=== PATIENT | male | born 1975 | race American Indian/Alaskan Native ===

== ENCOUNTER 2017-09-22 23:35 | Emergency (ER) | payer OTHER ==
--- NOTE | 2017-09-23 00:25 | XRay Report ---
FINAL REPORT EXAM: XR CHEST ROUTINE 2V HISTORY: Shortness of breath COMPARISON: None available. FINDINGS:: Frontal and lateral views of the chest obtained. Cardiac silhouette is within normal limits. No focal consolidation or effusion. No pneumothorax. Visualized bony thorax is grossly intact. IMPRESSION:: No acute findings.
[2017-09-23 00:33] LABS: Hematocrit 39.7 % (35.5-45.6); Hemoglobin 13.1 gm/dl (11.8-15.2); Mean Corpuscular HGB Conc 33 % (32-34); Mean Corpuscular Hemoglobin 25 pg (28-32); Mean Corpuscular Volume 75 fl (84-94); Platelet Count 231 K/mm3 (140-440); Red Blood Count 5.29 M/mm3 (3.65-5.03); Red Cell Distribution Width 13.9 % (13.2-15.2); White Blood Count 6.9 K/mm3 (4.5-11.0)
[2017-09-23 00:35] LABS: Anion Gap 15 mmol/L; BUN/Creatinine Ratio 10; Blood Urea Nitrogen 11 mg/dL (9-20); Calcium 9.2 mg/dL (8.4-10.2); Carbon Dioxide 28 mmol/L (22-30); Chloride 102.6 mmol/L (98-107); Glucose 110 mg/dL (75-100); Potassium 3.9 mmol/L (3.6-5.0); Sodium 142 mmol/L (137-145)
[2017-09-23 02:04] LABS: Basophils % (Manual) 0 % (0.0-1.8); Blastocytes % (Manual) 0 %
[2017-09-23 02:05] LABS: Diff Status Complete; Platelet Estimate Consistent w Auto
[2017-09-23 03:35] LABS: Bilirubin,Urine NEG (Negative); Blood,Urine NEG (Negative); Ketones,Urine NEG (Negative); Leukocyte Esterase,Urine NEG (Negative); Nitrite,Urine NEG (Negative); Protein,Urine <15 mg/dL mg/dL (Negative); Urobilinogen,Urine < 2.0 mg/dL (<2.0)
[2017-09-23 03:49] LABS: WBC,Urine < 1.0 /HPF (0.0-6.0)
[2017-09-23] MEDS ORDERED: NACL 0.9% 1000 ML 1,000 ML IV ONE (07:13)
[2017-09-23] MEDS ORDERED: PEPCID IV ONE (07:13)
[2017-09-23] MEDS ORDERED: ALUM-MAG HYDROX-SIMETH 200-200-20MG/5ML PO ONE (07:14)
[2017-09-23] MEDS ORDERED: CARAFATE PO ONE (07:14)
--- NOTE | 2017-09-23 07:15 | Emergency Department Report ---
ED General Adult HPI - General Chief complaint: Chest Pain Stated complaint: CHEST PAIN,SHORT OF BREATH Time Seen by Provider: 09/23/17 06:58 Source: patient, RN notes reviewed Mode of arrival: Ambulatory Limitations: No Limitations - History of Present Illness Initial comments: This is a 42-year-old male who was previously unknown to this provider. Patient presents to the ER with a complaint of shortness of breath. The shortness of breath started yesterday. It is constant. It worsens with physical exertion. It decreases with rest. Patient also endorses central chest tightness. The chest tightness is associated with back tightness. There is no vomiting, diaphoresis. There is no leg pain. There is no leg swelling. Patient denies hematemesis. Patient does admits to chronic rectal bleeding for months which is not new or different. 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 He reports multiple trips and state and out of state. Patient denies cocaine ingestion. No recent aspirin ingestion. -: Sudden Location: chest Radiation: non-radiation Severity scale (0 -10): 7 Quality: aching Consistency: intermittent Improves with: rest Worsens with: movement Associated Symptoms: chest pain, shortness of breath. denies: nausea/vomiting - Related Data Previous Rx's Medication Instructions Recorded Last Taken Type Acetaminophen/Codeine [Tylenol #3] 1 tab PO Q6H PRN #16 tab 10/06/15 Unknown Rx Cyclobenzaprine [Flexeril] 10 mg PO Q8H PRN #21 tablet 10/06/15 Unknown Rx Acetaminophen [Tylenol Arthritis] 650 mg PO Q6HR PRN #30 tablet.er 09/23/17 Unknown Rx Famotidine [Pepcid] 20 mg PO QDAY #30 tablet 09/23/17 Unknown Rx Allergies Allergy/AdvReac Type Severity Reaction Status Date / Time No Known Allergies Allergy Unverified 10/06/15 04:17 ED Review of Systems ROS: Stated complaint: CHEST PAIN,SHORT OF BREATH Other details as noted in HPI Constitutional: denies: diaphoresis, fever Eyes: denies: eye discharge ENT: denies: epistaxis Respiratory: denies: cough Cardiovascular: chest pain Gastrointestinal: denies: vomiting Genitourinary: as per HPI Musculoskeletal: as per HPI Skin: as per HPI Neurological: as per HPI Psychiatric: as per HPI ED Past Medical Hx - Past Medical History Previous Medical History?: No - Surgical History Past Surgical History?: No - Social History Smoking Status: Never Smoker Substance Use Type: Alcohol - Medications Home Medications: Home Medications Medication Instructions Recorded Confirmed Last Taken Type Acetaminophen/Codeine [Tylenol #3] 1 tab PO Q6H PRN #16 tab 10/06/15 Unknown Rx Cyclobenzaprine [Flexeril] 10 mg PO Q8H PRN #21 tablet 10/06/15 Unknown Rx Acetaminophen [Tylenol Arthritis] 650 mg PO Q6HR PRN #30 tablet.er 09/23/17 Unknown Rx Famotidine [Pepcid] 20 mg PO QDAY #30 tablet 09/23/17 Unknown Rx ED Physical Exam - General Limitations: No Limitations General appearance: alert, in no apparent distress - Head Head exam: Present: atraumatic, normocephalic - Eye Eye exam: Present: normal appearance, EOMI. Absent: nystagmus - ENT ENT exam: Present: normal exam, normal orophraynx, mucous membranes moist, normal external ear exam - Neck Neck exam: Present: normal inspection, full ROM - Respiratory Respiratory exam: Present: normal lung sounds bilaterally. Absent: respiratory distress, chest wall tenderness - Cardiovascular Cardiovascular Exam: Present: regular rate, normal rhythm, normal heart sounds. Absent: systolic murmur, diastolic murmur, rubs, gallop - GI/Abdominal GI/Abdominal exam: Present: soft, normal bowel sounds. Absent: distended, tenderness, guarding, rebound, rigid, pulsatile mass - Rectal Rectal exam: Present: normal inspection, normal rectal tone, heme (+) stool, bloody stool - Extremities Exam Extremities exam: Present: normal inspection, full ROM, normal capillary refill. Absent: pedal edema, joint swelling, calf tenderness - Back Exam Back exam: Present: normal inspection, full ROM. Absent: tenderness, CVA tenderness (R), paraspinal tenderness, vertebral tenderness - Neurological Exam Neurological exam: Present: alert, oriented X3, normal gait, other (Extraocular movements intact. Tongue midline. No facial droop. Facial sensation intact to light touch in the V1, V2, V3 distribution bilaterally. 5 and 5 strength in 4 extremities.. Sensation is intact to light touch in 4 extremities.). Absent : motor sensory deficit - Psychiatric Psychiatric exam: Present: normal affect, normal mood - Skin Skin exam: Present: warm, dry, intact, normal color. Absent: rash ED Course Vital Signs 09/22/17 09/23/17 09/23/17 23:57 04:05 04:33 Temperature 98.1 F 98.2 F 97.9 F Pulse Rate 64 61 56 L Respiratory 18 18 18 Rate Blood Pressure 148/94 126/83 Blood Pressure 117/79 [Left] O2 Sat by Pulse 100 98 98 Oximetry 09/23/17 09/23/17 09/23/17 05:00 06:00 06:15 Temperature Pulse Rate 53 L 60 60 Respiratory 16 17 14 Rate Blood Pressure 121/77 111/69 111/69 Blood Pressure [Left] O2 Sat by Pulse 99 99 100 Oximetry 09/23/17 09/23/17 09/23/17 06:45 07:01 07:25 Temperature Pulse Rate 58 L 68 66 Respiratory 15 15 17 Rate Blood Pressure 104/68 113/77 113/77 Blood Pressure [Left] O2 Sat by Pulse 99 100 98 Oximetry 09/23/17 09/23/17 09/23/17 07:30 07:45 09:19 Temperature Pulse Rate 55 L 54 L 62 Respiratory 19 17 18 Rate Blood Pressure 127/81 127/81 Blood Pressure 122/68 [Left] O2 Sat by Pulse 99 100 100 Oximetry - Reevaluation(s) Reevaluation #1: 09/23/17 07:34 Differential diagnosis, including not limited to: Upper GI bleed, lower GI bleed , GERD, gastritis, pneumonia, acute coronary syndrome, pulmonary embolus, pericarditis, myocarditis, pericardial effusion Assessment and plan: 42-year-old male with a primary complaint of chest pain or shortness of breath. EKG unremarkable, troponin is negative 3, x-ray of the chest negative. CT scan of the chest is ordered. On review of systems does endorse rectal bleeding for months. He has brown stool with flecks of red blood. Guaiac positive. Hemoglobin and hematocrit appropriate at this time. Patient will be medicated, and we will reassess after his CAT scan of the chest has resulted. Given that rectal bleeding has been present for months, patient does not require emergent GI evaluation for this, and can follow-up for this as an outpatient. Patient low risk by RASHAD score, low risk by heart score, he should be suitable for outpatient acute coronary syndrome risk stratification, assuming CT scan of the chest is negative. Reevaluation #2: 09/23/17 08:28 CAT scan of the chest is negative. Patient resting comfortably. He is in no distress. Vital signs have remained stable. The patient will be discharged with instructions to follow up with outpatient primary care, gastroenterology, cardiology. Reevaluation #3: 09/23/17 08:45 Patient feels improved. Case discussed with cardiology on-call, Ju Tobias; she requests that patient call [phone] for expedited cardiology appointment. ED Medical Decision Making - Lab Data Result diagrams: 09/23/17 00:05 09/23/17 00:05 Vital Signs 09/22/17 09/23/17 09/23/17 23:57 04:05 04:33 Temperature 98.1 F 98.2 F 97.9 F Pulse Rate 64 61 56 L Respiratory 18 18 18 Rate Blood Pressure 148/94 126/83 Blood Pressure 117/79 [Left] O2 Sat by Pulse 100 98 98 Oximetry 09/23/17 09/23/17 09/23/17 05:00 06:00 06:15 Temperature Pulse Rate 53 L 60 60 Respiratory 16 17 14 Rate Blood Pressure 121/77 111/69 111/69 Blood Pressure [Left] O2 Sat by Pulse 99 99 100 Oximetry Lab Results 09/23/17 09/23/17 09/23/17 Range/Units 00:05 00:05 03:02 WBC 6.9 (4.5-11.0) K/mm3 RBC 5.29 H (3.65-5.03) M/mm3 Hgb 13.1 (11.8-15.2) gm/dl Hct 39.7 (35.5-45.6) % MCV 75 L (84-94) fl MCH 25 L (28-32) pg MCHC 33 (32-34) % RDW 13.9 (13.2-15.2) % Plt Count 231 (140-440) K/mm3 Lymph % (Auto) Dance Master Add Manual Diff Complete Total Counted 100 Seg Neutrophils % Dance Master Seg Neuts % (Manual) 31.0 L (40.0-70.0) % Band Neutrophils % 0 % Lymphocytes % (Manual) 60.0 H (13.4-35.0) % Reactive Lymphs % (Man) 2.0 % Monocytes % (Manual) 2.0 (0.0-7.3) % Eosinophils % (Manual) 4.0 (0.0-4.3) % Basophils % (Manual) 0 (0.0-1.8) % Metamyelocytes % 0 % Myelocytes % 1.0 % Promyelocytes % 0 % Blast Cells % 0 % Nucleated RBC % Not Reportable Seg Neutrophils # Man 2.1 (1.8-7.7) K/mm3 Band Neutrophils # 0.0 K/mm3 Lymphocytes # (Manual) 4.1 (1.2-5.4) K/mm3 Abs React Lymphs (Man) 0.1 K/mm3 Monocytes # (Manual) 0.1 (0.0-0.8) K/mm3 Eosinophils # (Manual) 0.3 (0.0-0.4) K/mm3 Basophils # (Manual) 0.0 (0.0-0.1) K/mm3 Metamyelocytes # 0.0 K/mm3 Myelocytes # 0.1 K/mm3 Promyelocytes # 0.0 K/mm3 Blast Cells # 0.0 K/mm3 WBC Morphology Not Reportable Hypersegmented Neuts Not Reportable Hyposegmented Neuts Not Reportable Hypogranular Neuts Not Reportable Smudge Cells Not Reportable Toxic Granulation Not Reportable Toxic Vacuolation Not Reportable Dohle Bodies Not Reportable Pelger-Huet Anomaly Not Reportable Allie Rods Not Reportable Platelet Estimate Consistent w auto Clumped Platelets Not Reportable Plt Clumps, EDTA Not Reportable Large Platelets Not Reportable Giant Platelets Not Reportable Platelet Satelliting Not Reportable Plt Morphology Comment Not Reportable RBC Morphology Not Reportable Dimorphic RBCs Not Reportable Polychromasia Not Reportable Hypochromasia Not Reportable Poikilocytosis Not Reportable Anisocytosis Not Reportable Microcytosis Not Reportable Macrocytosis Not Reportable Spherocytes Not Reportable Pappenheimer Bodies Not Reportable Sickle Cells Not Reportable Target Cells Not Reportable Tear Drop Cells Not Reportable Ovalocytes Not Reportable Helmet Cells Not Reportable Marcano-Edisto Bodies Not Reportable Laurel Rings Not Reportable Brooks Cells Not Reportable Bite Cells Not Reportable Crenated Cell Not Reportable Elliptocytes Not Reportable Acanthocytes (Spur) Not Reportable Rouleaux Not Reportable Hemoglobin C Crystals Not Reportable Schistocytes Not Reportable Malaria parasites Not Reportable Adebayo Bodies Not Reportable Hem Pathologist Commnt No Sodium 142 (137-145) mmol/L Potassium 3.9 (3.6-5.0) mmol/L Chloride 102.6 (98-107) mmol/L Carbon Dioxide 28 (22-30) mmol/L Anion Gap 15 mmol/L BUN 11 (9-20) mg/dL Creatinine 1.1 (0.8-1.5) mg/dL Estimated GFR > 60 ml/min BUN/Creatinine Ratio 10 % Glucose 110 H (75-100) mg/dL Calcium 9.2 (8.4-10.2) mg/dL Troponin T < 0.010 < 0.010 (0.00-0.029) ng/mL Urine Color (Yellow) Urine Turbidity (Clear) Urine pH (5.0-7.0) Ur Specific [place] (1.003-1.030) Urine Protein (Negative) mg/dL Urine Glucose (UA) (Negative) mg/dL Urine Ketones (Negative) mg/dL Urine Blood (Negative) Urine Nitrite (Negative) Urine Bilirubin (Negative) Urine Urobilinogen (<2.0) mg/dL Ur Leukocyte Esterase (Negative) Urine WBC (Auto) (0.0-6.0) /HPF Urine RBC (Auto) (0.0-6.0) /HPF 09/23/17 09/23/17 Range/Units 06:09 Unknown WBC (4.5-11.0) K/mm3 RBC (3.65-5.03) M/mm3 Hgb (11.8-15.2) gm/dl Hct (35.5-45.6) % MCV (84-94) fl MCH (28-32) pg MCHC (32-34) % RDW (13.2-15.2) % Plt Count (140-440) K/mm3 Lymph % (Auto) Add Manual Diff Total Counted Seg Neutrophils % Seg Neuts % (Manual) (40.0-70.0) % Band Neutrophils % % Lymphocytes % (Manual) (13.4-35.0) % Reactive Lymphs % (Man) % Monocytes % (Manual) (0.0-7.3) % Eosinophils % (Manual) (0.0-4.3) % Basophils % (Manual) (0.0-1.8) % Metamyelocytes % % Myelocytes % % Promyelocytes % % Blast Cells % % Nucleated RBC % Seg Neutrophils # Man (1.8-7.7) K/mm3 Band Neutrophils # K/mm3 Lymphocytes # (Manual) (1.2-5.4) K/mm3 Abs React Lymphs (Man) K/mm3 Monocytes # (Manual) (0.0-0.8) K/mm3 Eosinophils # (Manual) (0.0-0.4) K/mm3 Basophils # (Manual) (0.0-0.1) K/mm3 Metamyelocytes # K/mm3 Myelocytes # K/mm3 Promyelocytes # K/mm3 Blast Cells # K/mm3 WBC Morphology Hypersegmented Neuts Hyposegmented Neuts Hypogranular Neuts Smudge Cells Toxic Granulation Toxic Vacuolation Dohle Bodies Pelger-Huet Anomaly Allie Rods Platelet Estimate Clumped Platelets Plt Clumps, EDTA Large Platelets Giant Platelets Platelet Satelliting Plt Morphology Comment RBC Morphology Dimorphic RBCs Polychromasia Hypochromasia Poikilocytosis Anisocytosis Microcytosis Macrocytosis Spherocytes Pappenheimer Bodies Sickle Cells Target Cells Tear Drop Cells Ovalocytes Helmet Cells Marcano-Edisto Bodies Laurel Rings Brooks Cells Bite Cells Crenated Cell Elliptocytes Acanthocytes (Spur) Rouleaux Hemoglobin C Crystals Schistocytes Malaria parasites Adebayo Bodies Hem Pathologist Commnt Sodium (137-145) mmol/L Potassium (3.6-5.0) mmol/L Chloride (98-107) mmol/L Carbon Dioxide (22-30) mmol/L Anion Gap mmol/L BUN (9-20) mg/dL Creatinine (0.8-1.5) mg/dL Estimated GFR ml/min BUN/Creatinine Ratio % Glucose (75-100) mg/dL Calcium (8.4-10.2) mg/dL Troponin T < 0.010 (0.00-0.029) ng/mL Urine Color Straw (Yellow) Urine Turbidity Clear (Clear) Urine pH 6.0 (5.0-7.0) Ur Specific [place] 1.002 L (1.003-1.030) Urine Protein <15 mg/dl (Negative) mg/dL Urine Glucose (UA) Neg (Negative) mg/dL Urine Ketones Neg (Negative) mg/dL Urine Blood Neg (Negative) Urine Nitrite Neg (Negative) Urine Bilirubin Neg (Negative) Urine Urobilinogen < 2.0 (<2.0) mg/dL Ur Leukocyte Esterase Neg (Negative) Urine WBC (Auto) < 1.0 (0.0-6.0) /HPF Urine RBC (Auto) 1.0 (0.0-6.0) /HPF - EKG Data -: EKG Interpreted by Me EKG shows normal: sinus rhythm Rate: normal - EKG Data When compared to previous EKG there are: previous EKG unavailable 09/23/17 07:37 EKG #1 demonstrates normal sinus, 69 bpm, normal axis, normal intervals, not morphologically consistent with ST elevation myocardial infarction, EKG #2 also appears unchanged. - Radiology Data Radiology results: pending, report reviewed, image reviewed X-ray of the chest is negative for acute disease Critical care attestation.: If time is entered above; I have spent that time in minutes in the direct care of this critically ill patient, excluding procedure time. ED Disposition Clinical Impression: Chest pain, Rectal bleeding Disposition: TO HOME OR SELFCARE Is pt being admited?: No Does the pt Need Aspirin: No Condition: Stable Instructions: Chest Pain (ED) Additional Instructions: Take the medication as directed. Avoid consumption of Motrin, ibuprofen, Aleve , Naprosyn. Avoid consumption of heavy and or spicy foods. Follow-up with a make up worker within the next 3-5 days, local make up worker practices include [facility] and [facility] Follow-up with a content administrator within the next 4-6 weeks. [facility] is a local GI practice. Follow up with the primary care doctor within the next month. Dr. Cinthya Neves is a local primary care doctor. Return to the ER right away with new pain, worsened pain, migration of pain, fevers, chills, lethargy, irritability, productive vomiting, confusion, inability to tolerate liquid feeds, confusion. I have specifically discussed her case with cardiology on-call, and they would like you to contact the following phone number: [phone], and follow up with a make up worker, Dr. Magana, within the next 3-5 days Prescriptions: Acetaminophen [Tylenol Arthritis] 650 mg PO Q6HR PRN #30 tablet.er PRN Reason: Pain Famotidine [Pepcid] 20 mg PO QDAY #30 tablet Referrals: [facility] [Provider Group] - 3-5 Days [facility] [Provider Group] - 3-[address] [facility] [Provider Group] - 3-5 Days PRIMARY CARE,MD [Primary Care Provider] - 3-5 Days ZORAN BELLAMY MD [Staff Physician] - 3-5 Days
[2017-09-23] MEDS ORDERED: NACL ONE (07:32)
--- NOTE | 2017-09-23 08:17 | Cat Scan Report ---
CTA CHEST: HISTORY: Shortness of breath. COMPARISON: none. TECHNIQUE: Helical CT in 1.25mm intervals following IV contrast. Pulmonary embolus protocol. Sagittal and coronal reformatted images. Rotational MIP images. FINDINGS: Contrast bolus is satisfactory. No pulmonary embolus is identified. Thyroid gland: Normal. Tracheobronchial tree: Normal. Esophagus: Normal. Heart: Normal. Pericardium: Normal. Mediastinum: Normal. Lung Tolbert: normal. Pleural Spaces: Normal. Musculoskeletal: Normal. IMPRESSION: No evidence for pulmonary embolus. Unremarkable CT chest with contrast.
[2017-09-23 09:20] VITALS: BP 122/68
== END 2017-09-23 09:20 | disposition home or self-care (01) ==
LOC: ED 23:35
DX: K62.5 Hemorrhage of anus and rectum (principal); R07.9 Chest pain, unspecified
CPT/HCPCS: 36415; 71020; 71275; 80048; 81001; 82271; 84484; 85007; 85025; 93005; 93010; 96361; 96374; 99285; J7030; Q9967